=== PATIENT | male | born 1945 | race Caucasian/White ===

== ENCOUNTER 2023-09-25 05:36 | Inpatient (IN) ==
--- NOTE | 2023-09-06 11:05 | PAT Medication Instructions ---
Medication Instructions Date of Service September 06, 2023 Home Medications atorvastatin 40 mg tablet 40 mg PO HS chlorthalidone 25 mg tablet 25 mg PO QAM cyanocobalamin (vitamin B-12) 250 mcg tablet (Vitamin B-12) 250 mcg PO DAILY gemfibrozil 600 mg tablet 600 mg PO BID losartan 100 mg tablet (Cozaar) 100 mg PO QAM metoprolol tartrate 50 mg tablet 50 mg PO BID multivitamin 1 tab PO QAM pantoprazole 40 mg tablet,delayed release (Protonix) 40 mg PO QAM tamsulosin 0.4 mg capsule (Flomax) 0.4 mg PO HS STOP taking 48 hours before surgery gemfibrozil 600 mg tablet 600 mg PO BID DO NOT take the morning of surgery chlorthalidone 25 mg tablet 25 mg PO QAM cyanocobalamin (vitamin B-12) 250 mcg tablet (Vitamin B-12) 250 mcg PO DAILY losartan 100 mg tablet (Cozaar) 100 mg PO QAM multivitamin 1 tab PO QAM Take morning of surgery With a small sip of water, OTHERWISE NOTHING TO EAT OR DRINK AFTER MIDNIGHT: metoprolol tartrate 50 mg tablet 50 mg PO BID pantoprazole 40 mg tablet,delayed release (Protonix) 40 mg PO QAM Take evening before surgery atorvastatin 40 mg tablet 40 mg PO HS metoprolol tartrate 50 mg tablet 50 mg PO BID tamsulosin 0.4 mg capsule (Flomax) 0.4 mg PO HS Other Notes If you have any questions please call us at [phone] or [phone] or [phone] or [phone]
--- NOTE | 2023-09-11 11:44 | Anesthesiology Consultation ---
Date of Service September 11, 2023 Assessment & Plan (1) Encounter for pre-operative examination: - awaiting cardiology pre-operative evaluation. - upcoming [facility] PCP Dr. Wagner Alejo pre-operative evaluation 09/15/23. PAT testing to be faxed to PCP. Patient still needs UA and urine culture and chest x-ray completed prior to surgery. - check BSG am DOS. - ER [facility] 09/11/23: "...in atrial fibrillation and requested he come to the emergency department. Patient denies any symptoms...Vital signs stable. Patient is in new onset atrial fibrillation he states he has no history of atrial fibrillation. Ventricular rate is within normal limits. Patient states he has no interest in being admitted to the hospital and is adamantly refusing to be admitted. Discussed case with cardiology on-call Dr. Randhawa who states that the patient can be discharged with prescription Eliquis that he can see the patient in the office for workup of his atrial fibrillation. Patient and son are in agreement..." - afib. Patient brought remote to [facility] visit and screen shows it is off. EKG is demonstrating atrial fibrillation, confirmed on several tracings-rate controlled. Patient is asymptomatic in clinic. EKG from 04/19/23 also demonstrates afib, however patient and son present at visit today both deny any known history of afib or previous discussion on anticoagulation. Patient confirms he is not on any anticoagulation. Afib not listed in PCP 06/05/23 note. We discussed risks of afib and given history/no anticoagulation, patient is advised to have further evaluation in ER. He is agreeable and was transported to [facility] ER in wheelchair. Report called to [place] with [facility] ER. Case discussed with Dr. Iverson who advised patient will need cardiology evaluation prior to surgery. - presence of nerve stimulator: patient will bring remote to hospital DOS. - facial hair: patient was advised to shave facial hair. Chart Review Chart Review: Pending: Refer to Additional Notes / Consult section and Patient seen in Pre Admission Testing Teaching & Discussion Pre-Anesthesia Teaching/Discussion Notes: Instructed NPO after midnight before surgery, except medications with 15 cc of water. Medication instructions provided according to the PAT guidelines. History Surgery Operation Date: 09/25/23 09:05 Proposed Procedures p L4-L5 Revision Decompression and Fusion, Possible L5-S1, Spinal Cord Monitoring - Jan Sue DO Height/Weight Height: 6 ft 1 in Weight: 118.9 kg Allergies Allergy/AdvReac Type Severity Reaction Status Date / Time hydromorphone [From Dilaudid] Allergy Intermediate nausea and Verified 09/11/23 13:45 vomiting moexipril Allergy Intermediate Rash Verified 09/11/23 12:18 morphine Allergy Intermediate nausea and Verified 09/11/23 13:45 vomiting hydrochlorothiazide Allergy Unknown RASH Verified 09/04/23 13:57 iodine Allergy Unknown RASH Verified 09/04/23 13:57 lodine Allergy Unknown Uncoded 09/11/23 13:45 Medications Home Medications Medication Instructions Recorded Confirmed Last Taken atorvastatin 40 mg tablet 40 mg PO HS 09/04/23 09/04/23 Unknown chlorthalidone 25 mg tablet 25 mg PO QAM 09/04/23 09/04/23 Unknown cyanocobalamin (vitamin B-12) 250 250 mcg PO DAILY 09/04/23 09/04/23 Unknown mcg tablet (Vitamin B-12) gemfibrozil 600 mg tablet 600 mg PO BID 09/04/23 09/04/23 Unknown losartan 100 mg tablet (Cozaar) 100 mg PO QAM 09/04/23 09/04/23 Unknown metoprolol tartrate 50 mg tablet 50 mg PO BID 09/04/23 09/04/23 Unknown multivitamin 1 tab PO QAM 09/04/23 09/04/23 Unknown pantoprazole 40 mg tablet,delayed 40 mg PO QAM 09/04/23 09/04/23 Unknown release (Protonix) tamsulosin 0.4 mg capsule (Flomax) 0.4 mg PO HS 09/04/23 09/04/23 Unknown apixaban 5 mg tablet (Eliquis) 5 mg PO BID #30 tabs 09/11/23 Unknown Past Medical History Medical History Afib Peripheral neuropathy BPH (benign prostatic hyperplasia) Type 2 diabetes mellitus diet controlled Dry eye syndrome Macular edema of left eye History of retinal vein occlusion Urinary retention chronic, denies change or worsening Acid reflux controlled, stable per pt Dyslipidemia HTN (hypertension) controlled, stable per pt Patient denies h/o stroke, seizures, heart attack, heart failure, or blood transfusions. Exercise / Class Metabolic Activity II 4-5 Yardwork/Stairs/Walk up hill (denies chest discomfort or shortness of breath with 1 FOS) Past Family History Family History Other No family history of adverse response to anesthesia Past Surgical History Surgical History S/P placement of nerve stimulator Hx of LASIK Hx of eye surgery Hx of colonoscopy Hx of removal of cyst back Hx of tooth extraction Hx of tonsillectomy Past Anesthesia History No Family Hx of Anesthesia Complications and Other (h/o bowel and urinary retention after surgeries) History of PONV No Hx of PONV and No Hx of Motion Sickness Social History Smoking Status: Former smoker Do You Dip or Chew Tobacco: No Smoking End Date: quit ~25 yrs ago Hx Alcohol Use: Yes (1 per day) Alcohol type: beer and hard liquor alcohol intake frequency: 0-2 drinks per day Hx Substance Use: No substance use type: does not use Review of Systems Snoring, denies witnessed apneas. Patient denies chest pain, shortness of breath, dyspnea on exertion, fever, chills, cough, wheezing, or palpitations. Physical Exam Vital Signs Vitals BP 125/79 P 90 TEMP 97.8 SP02 96% on RA RESP 18 Physical Patient resting comfortably in chair in no acute distress, alert and oriented, responding appropriately throughout visit Full cervical extension range of motion without pain TMD 3.5 finger breadths Mallampati Score 2 Dentition: intact-many missing teeth; denies chipped or loose teeth, caps/crowns, implants or bridges Lungs: normal respiratory effort. Good air movement, clear throughout to auscultation, no adventitious breath sounds Cardiac: regular rate and rhythm, no murmurs noted Carotid arteries: negative bruit bilat Lab Results Anesthesia Preop Results Results Anesthesia Widget: WBC 9.22 K/ul (4.8-10.8) 09/11/23 Hgb 15.1 g/dl (14.0-18.0) 09/11/23 Hct 41.3 % (42.0-52.0) L 09/11/23 Plt 311 K/uL (130-400) 09/11/23 Na 138 mmol/L (136-145) 09/11/23 K 4.0 mmol/L (3.5-5.1) 09/11/23 Cl 104 mmol/L (98-107) 09/11/23 CO2 22 mmol/L (21-32) 09/11/23 BUN 31 mg/dl (6-23) H 09/11/23 Creat 1.31 mg/dl (0.6-1.4) 09/11/23 Glucose Level 114 mg/dl (70-99(Fasting)) H 09/11/23 PT 10.8 Seconds (9.0-12.0) 09/11/23 PTT 29 Seconds (21-31) 09/11/23 INR 1.0 (0.9-1.1) 09/11/23 TSH 0.587 uIu/ml (0.300-4.500) 09/11/23 HA1c 6.5 % (4.5-5.6) H 09/11/23 Blood Type B Positive 09/11/23 Antibody Screen NEGATIVE 09/11/23 Testing Electrocardiogram Date: 09/11/23 Afib, rate 88 bpm Low voltage QRS Cannot rule out anterior infarct, age undetermined When compared with 09/11/23 EKG from earlier that day, minimal criteria for anterior infarct are now present Echocardiogram Date: 05/04/23 EF 55% Mildly dilated LA Mild MAC, no MS/MR
[2023-09-25] MEDS: LR 60ML/HR IV SCH (06:25)
[2023-09-25] MEDS: CeleBREX 200 MG CAP PO SCH (06:28)
[2023-09-25] MEDS: ACETAMINOPHEN 500 MG TAB PO SCH (06:28)
[2023-09-25] MEDS: GABAPENTIN 300 MG CAP PO SCH (06:28)
[2023-09-25] MEDS ORDERED: PROPOFOL IV EMULSION 10 MG/ML 20 ML VIAL IV ONE (06:59)
[2023-09-25] MEDS ORDERED: ROCURONIUM BROMIDE 10 MG/ML 5 ML VIAL IV ONE (06:59)
[2023-09-25] MEDS ORDERED: LIDOCAINE 2% 2 ML VIAL/AMP(20MG/ML) INFIL ONE (06:59)
[2023-09-25] MEDS ORDERED: fentaNYL citrate PF 100 MCG/2 ML VIAL ONE (07:00)
[2023-09-25] MEDS ORDERED: MIDAZOLAM HCL 1 MG/ML 2ML VIAL ONE (07:00)
[2023-09-25] MEDS ORDERED: ONDANSETRON INJ 2 MG/ML 2 ML VIAL IV PRN ×2 (07:42→11:26)
[2023-09-25] MEDS ORDERED: ePHEDrine sulfate 50 MG/ML AMP IV PRN (07:42)
[2023-09-25] MEDS ORDERED: ATROPINE SULFATE 0.1 MG/ML 10ML SYR IV PRN (07:42)
--- NOTE | 2023-09-25 07:48 | History & Physical Bridge Note ---
Date of Service September 25, 2023 History & Physical Bridge Note I have examined the patient, reviewed the History & Physical and in the interval since the performance of the History & Physical I have noted the following changes of clinical significance: no changes noted
--- NOTE | 2023-09-25 07:49 | History & Physical Report ---
Date of Service September 25, 2023 Assessment & Plan (1) Neurogenic claudication due to lumbar spinal stenosis: Plan: L4-L5 revision decompression and fusion possible L5-S1 History of Present Illness Chief Complaint: Back and leg pain Primary Care Provider: Wagner Alejo This is a 78-year-old male presents chronic persistent back and leg pain after failing course of nonoperative care is here for surgical invention. Allergies Allergy/AdvReac Type Severity Reaction Status Date / Time hydromorphone [From Dilaudid] Allergy Intermediate nausea and Verified 09/25/23 05:59 vomiting moexipril Allergy Intermediate Rash Verified 09/25/23 05:59 morphine Allergy Intermediate nausea and Verified 09/25/23 05:59 vomiting hydrochlorothiazide Allergy Unknown RASH Verified 09/25/23 05:59 iodine Allergy Unknown RASH Verified 09/25/23 05:59 lodine Allergy Unknown Uncoded 09/11/23 13:45 Home Medications Medication Instructions Recorded Confirmed Type atorvastatin 40 mg tablet 40 mg PO HS 09/04/23 09/25/23 History chlorthalidone 25 mg tablet 25 mg PO QAM 09/04/23 09/25/23 History cyanocobalamin (vitamin B-12) 250 250 mcg PO DAILY 09/04/23 09/25/23 History mcg tablet (Vitamin B-12) gemfibrozil 600 mg tablet 600 mg PO BID 09/04/23 09/25/23 History losartan 100 mg tablet (Cozaar) 100 mg PO QAM 09/04/23 09/25/23 History metoprolol tartrate 50 mg tablet 50 mg PO BID 09/04/23 09/25/23 History multivitamin 1 tab PO QAM 09/04/23 09/25/23 History pantoprazole 40 mg tablet,delayed 40 mg PO QAM 09/04/23 09/25/23 History release (Protonix) tamsulosin 0.4 mg capsule (Flomax) 0.4 mg PO HS 09/04/23 09/25/23 History apixaban 5 mg tablet (Eliquis) 5 mg PO BID #30 tabs 09/11/23 09/25/23 Rx Past Med/Surg History Medical History Afib Peripheral neuropathy BPH (benign prostatic hyperplasia) Type 2 diabetes mellitus diet controlled Dry eye syndrome Macular edema of left eye History of retinal vein occlusion Urinary retention chronic, denies change or worsening Acid reflux controlled, stable per pt Dyslipidemia HTN (hypertension) controlled, stable per pt Surgical History S/P placement of nerve stimulator Hx of LASIK Hx of eye surgery Hx of colonoscopy Hx of removal of cyst back Hx of tooth extraction Hx of tonsillectomy Family History Other No family history of adverse response to anesthesia Social History Smoking Status: Former smoker Tobacco Type: Cigarettes Smoking End Date: quit ~25 yrs ago; Second Hand Exposure: No; Do You Dip or Chew Tobacco: No; Tobacco Cessation Education Requested by Patient: No Hx Alcohol Use: Yes (1 per day) Alcohol type: beer and hard liquor Hx Substance Use: No Preferred Language: Citizen Of [place] Communication Ability: Effective Material Yard Clerk Required: No Beliefs That Will Affect Care: None Current Living Situation: Family Current Living Situation Comment: lives w/ son Other Information That Helps Us Care for You: No Feels Safe at Home: Yes Safety Concerns: Feels Safe At This Time Assistive Devices: Cane, Glasses and Walker Assistive Devices Comment: reading glasses Physical Exam Physical Exam: Patient is alert and oriented Heart regular in rhythm Lungs clear Results & Data Results & Data Vital Signs (Past 12 Hours) Vital Signs Temp Pulse Resp BP Pulse Ox O2 Del Method 09/25/23 06:03 36.5 C 74 18 157/93 H 95 Room Air
[2023-09-25] MEDS: ceFAZolin 2000MG 2,000 MG/15 ML SYR IV SCH ×2 (07:57→15:19)
[2023-09-25] MEDS ORDERED: ONDANSETRON INJ 2 MG/ML 2 ML VIAL ONE (08:16)
[2023-09-25] MEDS: BUPIVACAINE/EPINEPHRINE 0.5% MPF 1:200,000 30 ML VIAL ONE (08:45)
[2023-09-25] MEDS: ceFAZolin 330 MG/ML 1 GM VIAL ONE (08:45)
[2023-09-25] MEDS: FLOSEAL HEMOSTATIC MATRIX 10ML TOP ONE (09:39)
[2023-09-25] MEDS ORDERED: SUGAMMADEX SODIUM 200 MG/2 ML VIAL IV ONE (09:41)
[2023-09-25] MEDS ORDERED: KETOROLAC 30 MG/ML VIAL ONE (09:46)
--- NOTE | 2023-09-25 09:51 | Operative Report ---
Post Operative Report Pre & Post Diagnosis Operation Date: 09/25/23 07:45 Pre-Op Diagnosis: Neurogenic Claudication due to Lumbar Spinal Stenosis Lumbar spondylolisthesis L4-5 Post-Op Diagnosis: Same I identified the patient and participated in the time-out.: Yes Procedure Operation Date: 09/25/23 07:45 Actual Procedures #1 revision decompression with bilateral medial facetectomies and foraminotomies L3-L4 L4-5 per #2 posterior spinal fusion L4-5 #3 placed posterior instrumentation L4-5 per #4 interbody fusion L4-L5. #5 placement Spira 15 x 26 mm x 2 at L4-5 per #6 placement locally harvested morselized autograft in the posterior gutters. #7 placement of Morpheus bone graft in the interbody space and infuse collagen sponge, with Koros in the posterior lateral gutters. Surgeon Jan Sue, DO Repossessor Leti Gaming Estimated Blood Loss 100 Findings See Below The patient is 6 foot tall weighing over 116 kg with a BMI in excess of 34. Patient's body was did contribute to significant technical difficulty with positioning exposure and the procedure itself adding least 50% increased operative time. Specimens None Indications This is a 78-year-old male presents above-mentioned diagnosis after failed course of nonoperative care is here for surgical invention. Description of Procedure Patient met with identified informed consent obtained. Patient was then taken to the operative suite underwent patient placed in a prone position injection table top Alvarez frame. All bony prominences well-padded eyes inspected to ensure no external pressure placed upon the. This point the lumbar spine was prepped and draped in a sterile fashion. Sharp dissection with the assistance of Bovie cautery from down to and exposing the remaining lamina transverse processes of L4 and L5 bilaterally. From caudal to cephalad fashion revision complete laminectomy bilateral facetectomies of L4 partial laminectomy of L3 was performed with addressing severe spinal stenosis. Pedicle screws were then placed at L4-5 bilaterally with assistance of fluoroscopy and process denae placed. By way of a transforaminal approach beginning on the right discectomy of L4-5 was performed endplates guided to subcortical bleeding bone and a 15 x 26 mm Spira cage filled with Morpheus tapped in position. Then proceeded to the left transforaminal region completed the discectomy curetted the endplates to subcortical bleeding bone and placed a second 15 x 26 mm Spira cage filled with Morpheus bone graft into position. The rods were then compressed locked into final position bilaterally. The transverse processes of L4-5 burred to subcortical bleeding bone. Infuse collagen sponge count with Koros and local autograft placed in the posterior gutters. 15 round KEZIA drain inserted. The incision was then closed with 1 Vicryl the fascia 2-0 Vicryl subcutaneously and 4 Monocryl for final skin closure. Steri-Strips sterile dressing placed. Patient waken taken PACU stable condition. Please note spinal cord monitoring was utilized at the procedure no changes noted. Lastly Leti Gaming was present at the entire surgeon while the patient positioning complex portion of the surgery and fascial closure. I attest to the content of the Intraoperative Record and any orders documented therein. Any exceptions are noted below.
[2023-09-25] MEDS: fentaNYL citrate PF 100 MCG/2 ML VIAL IV PRN (10:35)
--- NOTE | 2023-09-25 11:00 | Anesthesiology Progress Note ---
Date of Service September 25, 2023 Anesthesia Post Procedure Vital Signs Vital Signs: Temp Pulse Pulse Resp BP Pulse Ox O2 Del Method 09/25/23 10:50 37.0 C 68 12 137/85 98 Nasal Cannula 09/25/23 10:40 64 12 148/94 H 97 Oxymask 09/25/23 10:30 64 12 147/98 H 95 Oxymask 09/25/23 10:20 68 14 165/83 H 98 Oxymask 09/25/23 10:10 68 14 177/103 H 98 Oxymask 09/25/23 10:00 36.0 C L 67 14 168/101 H 97 Oxymask 09/25/23 06:03 36.5 C 74 18 157/93 H 95 Room Air O2 Flow Rate 09/25/23 10:50 2 09/25/23 10:40 4 09/25/23 10:30 09/25/23 10:20 09/25/23 10:10 09/25/23 10:00 6 09/25/23 06:03 Pain Intensity Back: Pain Intensity: 8 Transfer of Care Handoff Completed per policy Notes Mental Status: alert / awake / arousable Patient Amnestic to Procedure: Yes Nausea / Vomiting: adequately controlled Pain: adequately controlled Airway Patency, RR, SpO2: stable & adequate BP & HR: stable & adequate Hydration State: stable & adequate Anesthetic Complications: no major complications apparent and Pt Satisfied with anesthetic care
[2023-09-25] MEDS ORDERED: bisacodyL 10 MG SUPP PR PRN (11:26)
[2023-09-25] MEDS ORDERED: hydrOXYzine HCl 25 MG TAB PO PRN (11:26)
[2023-09-25] MEDS ORDERED: LORazepam 0.5 MG in SYRINGE 0.25 ML IV PRN (11:26)
[2023-09-25] MEDS ORDERED: MAGNESIUM HYDROXIDE SUSP 30 ML UDC PO PRN (11:26)
[2023-09-25] MEDS ORDERED: METOCLOPRAMIDE HCL INJ 5 MG/ML 2 ML VIAL IV PRN (11:26)
[2023-09-25] MEDS ORDERED: DO NOT ADMINISTER FLU VACCINE PRN (11:26)
[2023-09-25] MEDS ORDERED: ALUMINUM/MAGNESIUM SUSP 30 ML UDC PO PRN (11:26)
[2023-09-25] MEDS ORDERED: traMADol HCL 50 MG TABLET PO PRN (11:26)
[2023-09-25] MEDS ORDERED: SOD PHOSPHATE/SOD BIPHOSPHATE ENEMA 132 ML BTL PR PRN (11:26)
[2023-09-25] MEDS ORDERED: NALOXONE HCL 0.4 MG/1 ML VIAL/CARP IV PRN (11:26)
[2023-09-25] MEDS ORDERED: DO NOT ADMINISTER PNEUMOCOCCAL VACCINE PRN (11:26)
[2023-09-25] MEDS ORDERED: FAMOTIDINE 20 MG TAB PO PRN (11:26)
[2023-09-25] MEDS ORDERED: ONDANSETRON 4 MG OD TAB PO PRN (11:26)
[2023-09-25] MEDS ORDERED: PROMETHAZINE HCL 12.5 MG in SODIUM CHLORIDE 0.9% 50 ML IV PRN (11:26)
[2023-09-25] MEDS ORDERED: LORazepam 0.5 MG TAB PO PRN (11:26)
[2023-09-25] MEDS ORDERED: ACETAMINOPHEN 1,000 MG/100 ML VIAL IV PRN (11:26)
[2023-09-25] MEDS ORDERED: diphenhydrAMINE Capsule 25 MG CAP PO PRN (11:26)
--- NOTE | 2023-09-25 11:58 | Hospitalist Consultation ---
Date of Consultation September 25, 2023 Assessment & Plan (1) Neurogenic claudication due to lumbar spinal stenosis: This is a 78 y/o male with recently diagnosis of atrial fibrillation, rate- controlled and on AC w/ Eliquis, HTN, hyperglycemia but no diagnosis of DM per PCP notes, GERD, BPH, peripheral neuropathy, and vitamin D deficiency who underwent L4-L5 decompression and fusion revision today (POD #0). Currently, his only significant complaint is lower back pain. - Pain control and activity per primary team - Resume Eliquis as soon as cleared to do so by primary team - Labs in the AM - CBC, BMP - Check EKG now due to history of atrial fibrillation - Encourage incentive spirometry (2) Prediabetes: Per PCP notes, pt's A1c was 6.1 in March, 6.2 the year prior. Discussed with pt the possibility of his sugar being elevated post-op after receiving steroids - Monitor blood sugar, insulin sliding scale - A1c in the AM (3) HTN (hypertension): Chronic, stable - Hold chlorthalidone for now pending oral intake, renal function - Continue other home meds and monitor (4) BPH (benign prostatic hyperplasia): Chronic, stable - Continue tamsulosin (5) Dyslipidemia: Chronic, stable - Continue statin (6) Acid reflux: Chronic, stable - Continue PPI therapy Plan Pt seen and reviewed with collaborating physician, Dr. Garcia. Plan of care discussed and as outlined above. thank you for this consultation. We will continue to follow the patient with you. [facility] via [facility] Please don't hesitate to reach out with questions. Fer Chaudhari PA-C Supervising Physician Co-Signing Physician Notes I have seen and discussed the case with the collaborating KVNG. I agree with the above H&P. I have reviewed and confirmed the patients medical history, the findings on physical examination, and the patients diagnosis and treatment plan with Fara CALDERON and agree with the information documented. In short, Mr. Baker is a 78 year old gentleman with history of HTN, HLD, prediabetes, BPH, persistent atrial fibrillation now POD #0 lumbar decompression of lumbar spine. Patient tolerated procedure and noting some post-operative pain. GENERAL APPEARANCE: AxOx4, generally uncomfortable male 2/2 pain post operatively NECK: Supple without lymphadenopathy. No stiffness or restricted ROM. HEART: normal rate, irregularly irregular LUNGS: CTAB, moving air well. No crackles or wheezes are heard. ABDOMEN: Soft/obese nontender, nondistended with good bowel sounds heard. EXTREMITIES: Without cyanosis, clubbing or edema. NEUROLOGICAL: Grossly nonfocal. Alert and oriented, moving all 4 extremities. CN not formally tested but appear grossly intact. #Neurogenic claudication s/p decompression -Encouraged IS -Follow Hgb and monitor for post-op anemia -Pain management per primary #Persistent A fib -Resume home medications -EKG -Discuss resumption of AC per discretion of Dr. Sue #HTN Resume BP meds as tolerated Rest of plan as above I spent a total of 20 minutes coordinating, documenting, and providing care for this patient excluding time spent in the performance of separately billed services. All of the aforementioned completed while collaborating with the assigned physician assistance for a full treatment plan History of Present Illness Reason for Consultation: Post-operative medical management Requesting Physician: Dr. Jan Sue Attending Physician: Jan Sue, History of Present Illness This is a 78 y/o male with recently diagnosis of atrial fibrillation, rate- controlled and on AC w/ Eliquis, HTN, hyperglycemia but no diagnosis of DM per PCP notes, GERD, BPH, peripheral neuropathy, and vitamin D deficiency who underwent L4-L5 decompression and fusion revision today by Dr. Sue and for whom we have been consulted to assist with post-operative medical management. Pt's outpatient PCP and cardiology notes were reviewed. Of note, pt was seen in the ED at [facility] on 09/11/23 after preoperative evaluation showed atrial fibrillation and pt was started on Eliquis, saw cardiology on Monday who recommended holding Eliquis x 48 hrs pre-op then resuming as soon as okay with surgeon. Pt reports that he was not told that he had atrial fibrillation before last month. Currently, his main complaint is lower back pain. He denies chest pain, palpitations, shortness of breath, nausea or vomiting. Last BM was yest erday. Some throat dryness but no pain or dysphagia. Has a Alarcon in place. Prior back surgery with spinal stimulator placement in 2020. Allergies Allergy/AdvReac Type Severity Reaction Status Date / Time hydromorphone [From Dilaudid] Allergy Intermediate nausea and Verified 09/25/23 05:59 vomiting moexipril Allergy Intermediate Rash Verified 09/25/23 05:59 morphine Allergy Intermediate nausea and Verified 09/25/23 05:59 vomiting hydrochlorothiazide Allergy Unknown RASH Verified 09/25/23 05:59 iodine Allergy Unknown RASH Verified 09/25/23 05:59 lodine Allergy Unknown Uncoded 09/11/23 13:45 Home Medications Medication Instructions Recorded Confirmed Type atorvastatin 40 mg tablet 40 mg PO HS 09/04/23 09/25/23 History chlorthalidone 25 mg tablet 25 mg PO QAM 09/04/23 09/25/23 History cyanocobalamin (vitamin B-12) 250 250 mcg PO DAILY 09/04/23 09/25/23 History mcg tablet (Vitamin B-12) gemfibrozil 600 mg tablet 600 mg PO BID 09/04/23 09/25/23 History losartan 100 mg tablet (Cozaar) 100 mg PO QAM 09/04/23 09/25/23 History metoprolol tartrate 50 mg tablet 50 mg PO BID 09/04/23 09/25/23 History multivitamin 1 tab PO QAM 09/04/23 09/25/23 History pantoprazole 40 mg tablet,delayed 40 mg PO QAM 09/04/23 09/25/23 History release (Protonix) tamsulosin 0.4 mg capsule (Flomax) 0.4 mg PO HS 09/04/23 09/25/23 History apixaban 5 mg tablet (Eliquis) 5 mg PO BID #30 tabs 09/11/23 09/25/23 Rx oxycodone 5 mg tablet 5 mg PO Q6H PRN pain #30 tabs 09/25/23 09/25/23 Rx tramadol 50 mg tablet 50 mg PO Q6H PRN pain, moderate 09/25/23 09/25/23 Rx #30 tabs Patient History Medical History (Updated 09/25/23 @ 13:13 by Mey Chaudhari PA-C) Prediabetes Acid reflux controlled, stable per pt Dyslipidemia HTN (hypertension) controlled, stable per pt Afib Peripheral neuropathy BPH (benign prostatic hyperplasia) Dry eye syndrome Macular edema of left eye History of retinal vein occlusion Urinary retention chronic, denies change or worsening Surgical History S/P placement of nerve stimulator Hx of LASIK Hx of eye surgery Hx of colonoscopy Hx of removal of cyst back Hx of tooth extraction Hx of tonsillectomy Family History Other No family history of adverse response to anesthesia Social History Smoking Status: Former smoker Tobacco Type: Cigarettes Smoking End Date: quit ~25 yrs ago; Second Hand Exposure: No; Do You Dip or Chew Tobacco: No; Tobacco Cessation Education Requested by Patient: No Hx Alcohol Use: Yes (1 per day) Alcohol type: beer and hard liquor Hx Substance Use: No Preferred Language: Dutch Communication Ability: Effective Trimming Operator Required: No Beliefs That Will Affect Care: None Current Living Situation: Other Current Living Situation Comment: Son - Jimmy Other Information That Helps Us Care for You: No Feels Safe at Home: Yes Safety Concerns: Feels Safe At This Time Assistive Devices: Cane, Denture - Upper and Other Assistive Devices Comment: shower chair Review of Systems Review of Systems: All systems reviewed & are unremarkable except as noted in HPI & below Physical Exam Physical Exam: Please see physician addendum for details of the physical exam Results & Data Results & Data Vital Signs (Past 12 Hours) Vital Signs Temp Pulse Pulse Pulse Resp BP Pulse Ox 09/25/23 11:30 36.8 C 64 15 122/73 97 09/25/23 11:00 63 12 136/65 96 09/25/23 10:50 37.0 C 68 12 137/85 98 09/25/23 10:40 64 12 148/94 H 97 09/25/23 10:30 64 12 147/98 H 95 09/25/23 10:20 68 14 165/83 H 98 09/25/23 10:10 68 14 177/103 H 98 09/25/23 10:00 36.0 C L 67 14 168/101 H 97 09/25/23 06:03 36.5 C 74 18 157/93 H 95 O2 Del Method O2 Flow Rate 09/25/23 11:30 Nasal Cannula 2 09/25/23 11:00 Nasal Cannula 2 09/25/23 10:50 Nasal Cannula 2 09/25/23 10:40 Oxymask 4 09/25/23 10:30 Oxymask 09/25/23 10:20 Oxymask 09/25/23 10:10 Oxymask 09/25/23 10:00 Oxymask 6 09/25/23 06:03 Room Air Laboratory Results 09/25/23 09/25/23 09/25/23 06:06 06:22 10:07 POC Glucose 142 H 157 H Blood Type B Positive Antibody Screen NEGATIVE 09/25/23 11:44 POC Glucose 137 H Blood Type Antibody Screen Medications Administered Acetaminophen (Acetaminophen 500 Mg Tab) 1,000 mg PO PREOP CROW Stop: 09/25/23 18:00 Last Admin: 09/25/23 06:28 Dose: 1,000 mg Documented By: MINH Celecoxib (Celebrex 200 Mg Cap) 200 mg PO PREOP CROW Stop: 09/25/23 18:00 Last Admin: 09/25/23 06:28 Dose: 200 mg Documented By: MINH Fentanyl Citrate (Fentanyl Citrate Pf 100 Mcg/2 Ml Vial) 25 mcg IV Q5M PRN PRN Reason: PACU Use Only-Pain Stop: 09/25/23 15:43 Last Admin: 09/25/23 10:50 Dose: 25 mcg Documented By: Admin: 09/25/23 10:45 Dose: 25 mcg Documented By: Admin: 09/25/23 10:40 Dose: 25 mcg Documented By: Admin: 09/25/23 10:35 Dose: 25 mcg Documented By: LAURENT Gabapentin (Gabapentin 300 Mg Cap) 300 mg PO PREOP CROW Stop: 09/25/23 18:00 Last Admin: 09/25/23 06:28 Dose: 300 mg Documented By: MINH Lactated Ringer's (Lr) 1,000 mls @ 60 mls/hr IV .[id number] CROW Stop: 09/25/23 22:39 Last Infusion: 09/25/23 07:55 Dose: Infused Documented By: Admin: 09/25/23 06:25 Dose: 60 mls/hr Documented By: MINH Cefazolin Sodium (Ancef 2000mg) 2,000 mg in 15 mls @ 3.75 mls/min IV PREOP CROW; Protocol Stop: 09/25/23 18:00 Last Admin: 09/25/23 07:57 Dose: 3.75 mls/min Documented By: ALEXANDRIA Lactated Ringer's (Lr) 1,000 mls @ 150 mls/hr IV .[id number] CROW Stop: 10/25/23 11:25 Last Admin: 09/25/23 12:00 Dose: 150 mls/hr Documented By: Stacia Discontinued Medications Bupivacaine HCl/Epinephrine Bitart (Bupivacaine/Epinephrine 0.5% Mpf 1:200,000 30 Ml Vial) Confirm Administered Dose 30 ml .ROUTE .STK-MED ONE Stop: 09/25/23 07:06 Last Admin: 09/25/23 08:45 Dose: 20 ml Documented By: GMB Cefazolin Sodium (Cefazolin 330 Mg/Ml 1 Gm Vial) Confirm Administered Dose 990 mg .ROUTE .STK-MED ONE Stop: 09/25/23 07:07 Last Admin: 09/25/23 08:45 Dose: 990 mg Documented By: GMGuillaume Miscellaneous ( Floseal Hemostatic Matrix 10ml) 20 ml TOP ONCE ONE Stop: 09/25/23 08:47 Last Admin: 09/25/23 09:39 Dose: 20 ml Documented By: GMB (3) HTN (hypertension) Hypertension type: primary hypertension Qualified Code(s): I10 - Essential (primary) hypertension (4) BPH (benign prostatic hyperplasia) Lower urinary tract symptom detail: urinary retention Lower urinary tract symptom presence: symptoms present Qualified Code(s): N40.1 - Benign prostatic hyperplasia with lower urinary tract symptoms; R33.8 - Other retention of urine (6) Acid reflux Esophagitis presence: without esophagitis Qualified Code(s): K21.9 - Gastro- esophageal reflux disease without esophagitis
[2023-09-25] MEDS: LACTATED RINGER'S 1,000 ML IV SCH (12:00)
[2023-09-25] MEDS ORDERED: GLUCAGON FOR INJ 1 MG VIAL SQ PRN (13:18)
[2023-09-25] MEDS ORDERED: DEXTROSE 50% 50 ML SYRINGE IV PRN (13:18)
[2023-09-25] MEDS ORDERED: GLUCOSE 10 TAB/TUBE PO PRN (13:18)
[2023-09-25] MEDS ORDERED: GLUCOSE 40% GEL 15 GM TUBE PO PRN (13:18)
[2023-09-25] MEDS ORDERED: CARBOHYDRATES FOR HYPOGLYCEMIA PO PRN (13:18)
--- NOTE | 2023-09-25 13:52 | Fluoroscopy Report ---
FL lumbar spine 2-3V CLINICAL HISTORY: L4-L5 DECOMPRESSION AND FUSION POSSIBLE L5-S1 COMPARISON STUDY: None FLUOROSCOPY TIME: 19.5 seconds FLUOROSCOPY IMAGES: 2 EXPOSURE DOSE: 18.61 mGy FINDINGS: Posterior interbody denae and screw fusion with discectomy at L4-L5. The hardware appears int act. No unexpected opaque foreign bodies. IMPRESSION: Fluoroscopic assistance as above. ACT 112: Negative or not required by law. Electronically signed by: Ayo Bennett M.D. 09/25/2023 1:51 PM
[2023-09-25] MEDS: oxyCODONE HCL IR 5 MG TAB (IMMEDIATE RELEASE) PO PRN (13:55)
--- NOTE | 2023-09-25 16:59 | Electrocardiogram Report ---
Test Reason : Blood Pressure : / mmHG Vent. Rate : 064 BPM Atrial Rate : 394 BPM P-R Int : 000 ms QRS Dur : 066 ms QT Int : 402 ms P-R-T Axes : 000 -20 -01 degrees QTc Int : 414 ms Atrial fibrillation Possible Old Inferior infarct (cited on or before 11-SEP-2023) Possible Old Septal infarct Abnormal ECG When compared with ECG of 11-SEP-2023 13:18, No significant change Confirmed by Michael Solano ([id number]) on 09/25/2023 4:58:39 PM Referred By: Jan Sue Confirmed By:Michael Solano
[2023-09-25] MEDS: INSULIN ASPART PER UNIT CHARGE SC SCH (17:18)
[2023-09-25] MEDS: gemfibroziL 600 MG TAB PO SCH (20:57)
[2023-09-25] MEDS: METOPROLOL TARTRATE 50 MG TAB PO SCH (20:57)
[2023-09-25] MEDS: TAMSULOSIN HCL 0.4 MG CAP PO SCH (20:58)
[2023-09-25] MEDS: DOCUSATE SODIUM/SENNA 50/8.6MG TAB PO SCH (20:58)
[2023-09-25] MEDS: ATORVASTATIN 40 MG TAB PO SCH (20:58)
[2023-09-26] MEDS: POLYETHYLENE (MIRALAX) 17 GM PACK PO SCH (05:20)
[2023-09-26 06:45] LABS: Basophils # (auto) 0.07 K/uL (0.00-0.20); Basophils % (auto) 0.7 %; Eosinophils # (auto) 0.26 K/uL (0.00-0.50); Eosinophils % (auto) 2.7 %; Hematocrit (blood only) 34.7 % (42.0-52.0); Hemoglobin 12.3 g/dl (14.0-18.0); Immature Granulocytes # (auto) 0.03 K/uL (0.01-0.20); Immature Granulocytes % (auto) 0.3 %; Lymphocytes # (auto) 1.41 K/uL (1.20-3.40); Lymphocytes % (auto) 14.5 %; Mean Corpuscular Hemoglobin 32.2 pg (25.0-34.0); Mean Corpuscular Hgb Conc 35.4 g/dL (32.0-36.0); Mean Corpuscular Volume 90.8 fL (80.0-100.0); Mean Platelet Volume 10.4 fL (9.4-12.4); Monocytes # (auto) 1.07 K/uL (0.11-0.59); Neutrophils # (auto) 6.86 K/uL (1.40-6.50); Neutrophils % (auto) 70.8 %; Platelet Count 234 K/uL (130-400); RDW Coefficient of Variation 13.2 % (11.5-14.5); RDW Standard Deviation 43.1 fL (36.4-46.3); Red Blood Count 3.82 M/uL (4.70-6.10)
[2023-09-26 07:05] LABS: BUN Creatinine Ratio 20.1 (10-20); Calcium 8.3 mg/dl (8.6-10.3); Creatinine Clr Calc Pharmacy 50.4 ml/min; Est GFR (African American) 47.5 ml/min; Potassium 3.6 mmol/L (3.5-5.1)
[2023-09-26 07:43] LABS: Estimated Average Glucose 140 mg/dl; Hemoglobin A1C 6.5 % (4.5-5.6)
[2023-09-26] MEDS: LOSARTAN POTASSIUM 50 MG TAB PO SCH (08:15)
[2023-09-26] MEDS: PANTOprazole 40 MG TAB PO SCH (08:16)
[2023-09-26] MEDS: CYANOCOBALAMIN (B-12) 500 MCG TABLET PO SCH (08:16)
[2023-09-26] MEDS: dexAMETHasone 6 MG in SYRINGE 0 ML IV SCH (08:16)
[2023-09-26] MEDS: MULTIVITAMIN TAB PO SCH (08:16)
[2023-09-26] MEDS ORDERED: CHLORTHALIDONE 25 MG TAB PO SCH (09:00)
--- NOTE | 2023-09-26 13:21 | Orthopedic Progress Note ---
Date of Service September 26, 2023 Assessment & Plan (1) Neurogenic claudication due to lumbar spinal stenosis: Plan: At this time continue physical therapy monitor KEZIA operatively discharge home in next few days. Admission and Anticipated Discharge Date Admission Date: September 25, 2023 Subjective Back pain controlled leg pain improved Physical Exam Physical Exam: Patient is in the chair at the bedside. Is constricted testing. Peers comforta ble. Results & Data Vital Signs (Past 12 Hours) Vital Signs Temp Pulse Resp BP BP Pulse Ox O2 Del Method 09/26/23 11:37 36.9 C 72 18 100/61 94 Room Air 09/26/23 08:10 Room Air 09/26/23 07:38 37.1 C 77 18 146/86 H 95 Room Air 09/26/23 03:11 36.9 C 71 16 119/65 95 Room Air Queries Orthopedic Spine Obesity: Yes
--- NOTE | 2023-09-26 16:57 | Hospitalist Progress Note ---
Date of Service September 26, 2023 Assessment & Plan (1) Neurogenic claudication due to lumbar spinal stenosis: Plan: Patient is a 78 yr male with H/O Atrial fibrillation, rate-controlled and on AC w/ Eliquis, HTN, hyperglycemia but no diagnosis of DM per PCP notes, GERD, BPH, peripheral neuropathy, and vitamin D deficiency who underwent L4-L5 decompression and fusion revision today (POD #0). Currently, his only significant complaint is lower back pain. Lumbar spinal stenosis with neurogenic claudication S/P lumbar decompression, fusion surgery by Dr. Sue on 07/25/2024 Expected postoperative acute blood loss anemia Pain control, activity, wound care as per primary team Continue PT OT Bowel regimen to prevent constipation No indication for PRBC transfusion for now Monitor CBC Persistent atrial fibrillation Resume Eliquis once cleared by surgery Continue metoprolol (2) Prediabetes: Plan: DM II HbA1c 6.5 HbA1c 6.5 in August as well Patient currently prefers to be managed with dietary changes Continue insulin while hospitalized Monitor BGs Prefers to follow-up with PCP for further management CKD II Cr slightly elevated Hold diuretics for now Gentle IV fluids Monitor renal function Avoid nephrotoxic agents as able (3) HTN (hypertension): Plan: Chronic, stable Continue losartan, metoprolol Hold chlorthalidone for now Monitor BP (4) BPH (benign prostatic hyperplasia): Plan: Chronic, stable - Continue tamsulosin (5) Dyslipidemia: Plan: Chronic, stable - Continue statin (6) Acid reflux: Plan: Chronic, stable - Continue PPI Plan DVT Px: SCDs Resume Eliquis once ok with orthopedic surgery Admission and Anticipated Discharge Date Admission Date: September 25, 2023 Subjective Patient is seen and examined at bedside Back pain at surgical site is controlled States feeling tired today + Flatus, no bowel movement today Denies any chest pain, dyspnea, dizziness, nausea, vomiting No other complaints Review of Systems Review of Systems: All systems reviewed & are unremarkable except as noted in Subjective Physical Exam Physical Exam: Physical Exam: Vitals signs as noted above General Appearance:Moderately built and nourished, no apparent distress Head: normocephalic, Atraumatic Eyes: normal inspection, EOMI Neck: supple, Trachea midline Respiratory/Chest: Normal breath sounds, CTA, No accessory muscle use Cardiovascular: Irregularly irregular, No murmur Abdomen/GI:Soft, Non tender, Bowel sounds present Back: surgical site in dressing, +drain Extremities/Musculoskeletal:normal inspection, no edema Neurologic/Psych:AAOX3, grossly no focal neurological deficits Skin: normal color, warm Results & Data Results & Data Vital Signs (Past 12 Hours) Vital Signs Temp Pulse Resp BP Pulse Ox O2 Del Method 09/26/23 14:54 36.6 C 77 18 123/75 95 Room Air 09/26/23 11:37 36.9 C 72 18 100/61 94 Room Air 09/26/23 08:10 Room Air 09/26/23 07:38 37.1 C 77 18 146/86 H 95 Room Air Laboratory Results Short CBC 09/26/23 Range/Units 06:24 WBC 9.70 (4.8-10.8) K/ul Hgb 12.3 L (14.0-18.0) g/dl Hct 34.7 L (42.0-52.0) % Plt Count 234 (130-400) K/uL BMP 09/26/23 06:24 Sodium 138 Potassium 3.6 Chloride 104 Carbon Dioxide 25 BUN 32 H Creatinine 1.59 H Glucose 143 H Calcium 8.3 L (3) HTN (hypertension) Hypertension type: primary hypertension Qualified Code(s): I10 - Essential ( primary) hypertension (4) BPH (benign prostatic hyperplasia) Lower urinary tract symptom presence: symptoms present Lower urinary tract symptom detail: urinary retention Qualified Code(s): N40.1 - Benign prostatic hyperplasia with lower urinary tract symptoms; R33.8 - Other retention of urine (6) Acid reflux Esophagitis presence: without esophagitis Qualified Code(s): K21.9 - Gastro- esophageal reflux disease without esophagitis
[2023-09-26] MEDS: NSS + 20MEQ KCL 20 MEQ/1,000 ML BAG IV ONE (17:20)
[2023-09-27 07:09] LABS: Hematocrit (blood only) 33.1 % (42.0-52.0); Hemoglobin 11.6 g/dl (14.0-18.0); Mean Corpuscular Hemoglobin 31.8 pg (25.0-34.0); Mean Corpuscular Volume 90.7 fL (80.0-100.0); Mean Platelet Volume 10.8 fL (9.4-12.4); Platelet Count 233 K/uL (130-400); RDW Coefficient of Variation 12.6 % (11.5-14.5); RDW Standard Deviation 41.2 fL (36.4-46.3); Red Blood Count 3.65 M/uL (4.70-6.10); White Blood Count 12.21 K/ul (4.8-10.8)
[2023-09-27 07:21] LABS: BUN Creatinine Ratio 23.7 (10-20); Calcium 8.5 mg/dl (8.6-10.3); Creatinine Clr Calc Pharmacy 61.2 ml/min; Est GFR (Non-African American) 51.8 ml/min; Potassium 3.8 mmol/L (3.5-5.1)
--- NOTE | 2023-09-27 14:37 | Orthopedic Progress Note ---
Date of Service September 27, 2023 Assessment & Plan (1) Neurogenic claudication due to lumbar spinal stenosis: Plan: At this time continue physical therapy monitor KEZIA output anticipate discharge home tomorrow. Admission and Anticipated Discharge Date Admission Date: September 25, 2023 Subjective Back pain controlled leg pain improved Physical Exam Physical Exam: Patient is in the chair at the bedside patient has good strength testing. Results & Data Vital Signs (Past 12 Hours) Vital Signs Temp Pulse Pulse Resp BP Pulse Ox O2 Del Method 09/27/23 13:00 37.0 C 70 16 123/67 97 Room Air 09/27/23 09:15 Room Air 09/27/23 07:43 36.7 C 60 12 169/89 H 97 Room Air Queries Orthopedic Spine Obesity: Yes
--- NOTE | 2023-09-27 16:23 | Hospitalist Progress Note ---
Date of Service September 27, 2023 Assessment & Plan (1) Neurogenic claudication due to lumbar spinal stenosis: Plan: Patient is a 78 yr male with H/O Atrial fibrillation, rate-controlled and on AC w/ Eliquis, HTN, hyperglycemia but no diagnosis of DM per PCP notes, GERD, BPH, peripheral neuropathy, and vitamin D deficiency who underwent L4-L5 decompression and fusion revision today (POD #0). Currently, his only significant complaint is lower back pain. Lumbar spinal stenosis with neurogenic claudication S/P lumbar decompression, fusion surgery by Dr. Sue on 07/25/2024 Expected postoperative acute blood loss anemia Pain control, activity, wound care as per primary team Bowel regimen to prevent constipation No indication for PRBC transfusion for now Monitor CBC Leukocytosis likely secondary to steroids Continue PT OT Persistent atrial fibrillation Recommend to resume Eliquis once cleared by surgery Continue metoprolol (2) Prediabetes: Plan: DM II HbA1c 6.5 HbA1c 6.5 in August as well Patient currently prefers to be managed with dietary changes Continue insulin while hospitalized Monitor BGs Prefers to follow-up with PCP for further management CKD II Cr slightly elevated Hold diuretics for now Received gentle IV fluids Monitor renal function Avoid nephrotoxic agents as able (3) HTN (hypertension): Plan: Chronic, stable Continue losartan, metoprolol Hold chlorthalidone for now Monitor BP (4) BPH (benign prostatic hyperplasia): Plan: Chronic, stable - Continue tamsulosin (5) Dyslipidemia: Plan: Chronic, stable - Continue statin (6) Acid reflux: Plan: Chronic, stable - Continue PPI Plan DVT Px: SCDs Resume Eliquis once ok with orthopedic surgery Admission and Anticipated Discharge Date Admission Date: September 25, 2023 Subjective Patient is seen and examined at bedside Back pain is controlled Ambulated in the hallways this morning Had bowel movement today No new complaints Denies any chest pain, dyspnea, dizziness, nausea, vomiting Review of Systems Review of Systems: All systems reviewed & are unremarkable except as noted in Subjective Physical Exam Physical Exam: Physical Exam: Vitals signs as noted above General Appearance:Moderately built and nourished, no apparent distress Head: normocephalic, Atraumatic Eyes: normal inspection, EOMI Neck: supple, Trachea midline Respiratory/Chest: Normal breath sounds, CTA, No accessory muscle use Cardiovascular: Irregularly irregular, No murmur Abdomen/GI:Soft, Non tender, Bowel sounds present Back: surgical site in dressing, +drain Extremities/Musculoskeletal:normal inspection, no edema Neurologic/Psych:AAOX3, grossly no focal neurological deficits Skin: normal color, warm Results & Data Results & Data Vital Signs (Past 12 Hours) Vital Signs Temp Pulse Pulse Resp BP Pulse Ox O2 Del Method 09/27/23 13:00 37.0 C 70 16 123/67 97 Room Air 09/27/23 09:15 Room Air 09/27/23 07:43 36.7 C 60 12 169/89 H 97 Room Air Laboratory Results Short CBC 09/27/23 Range/Units 06:36 WBC 12.21 H (4.8-10.8) K/ul Hgb 11.6 L (14.0-18.0) g/dl Hct 33.1 L (42.0-52.0) % Plt Count 233 (130-400) K/uL BMP 09/27/23 06:36 Sodium 138 Potassium 3.8 Chloride 105 Carbon Dioxide 24 BUN 31 H Creatinine 1.31 Glucose 141 H Calcium 8.5 L (3) HTN (hypertension) Hypertension type: primary hypertension Qualified Code(s): I10 - Essential (primary) hypertension (4) BPH (benign prostatic hyperplasia) Lower urinary tract symptom presence: symptoms present Lower urinary tract symptom detail: urinary retention Qualified Code(s): N40.1 - Benign prostatic hyperplasia with lower urinary tract symptoms; R33.8 - Other retention of urine (6) Acid reflux Esophagitis presence: without esophagitis Qualified Code(s): K21.9 - Gastro- esophageal reflux disease without esophagitis
[2023-09-27] MEDS: ACETAMINOPHEN 500 MG TAB PO PRN (20:05)
[2023-09-28 06:49] LABS: Calcium 8.8 mg/dl (8.6-10.3); Potassium 3.9 mmol/L (3.5-5.1)
[2023-09-28 06:54] LABS: BUN Creatinine Ratio 29.6 (10-20); Creatinine Clr Calc Pharmacy 69.7 ml/min; Est GFR (African American) 70.3 ml/min; Est GFR (Non-African American) 60.6 ml/min
[2023-09-28 07:04] LABS: Hematocrit (blood only) 33.4 % (42.0-52.0); Hemoglobin 11.8 g/dl (14.0-18.0); Mean Corpuscular Hemoglobin 32.6 pg (25.0-34.0); Mean Corpuscular Hgb Conc 35.3 g/dL (32.0-36.0); Mean Corpuscular Volume 92.3 fL (80.0-100.0); Mean Platelet Volume 11.1 fL (9.4-12.4); Platelet Count 245 K/uL (130-400); RDW Coefficient of Variation 12.6 % (11.5-14.5); RDW Standard Deviation 42.5 fL (36.4-46.3); Red Blood Count 3.62 M/uL (4.70-6.10); White Blood Count 11.97 K/ul (4.8-10.8)
--- NOTE | 2023-09-28 08:25 | Discharge Summary ---
Date of Service September 28, 2023 Admission HPI Per Admitting Provider This is a 78-year-old male presents chronic persistent back and leg pain after failing course of nonoperative care is here for surgical invention. Principal Diagnosis Lumbar spinal stenosis with spondylolisthesis and neurogenic claudication Discharge Data Allergies Allergy/AdvReac Type Severity Reaction Status Date / Time hydromorphone [From Dilaudid] Allergy Intermediate nausea and Verified 09/25/23 05:59 vomiting moexipril Allergy Intermediate Rash Verified 09/25/23 05:59 morphine Allergy Intermediate nausea and Verified 09/25/23 05:59 vomiting hydrochlorothiazide Allergy Unknown RASH Verified 09/25/23 05:59 iodine Allergy Unknown RASH Verified 09/25/23 05:59 Consultations 09/25/23 11:26 Consult Hospitalist Routine Procedures Performed Operation Date: 09/25/23 07:45 Actual Procedures p L4-L5 Decompression and Fusion Revision, Spinal Cord Monitoring(Not Applicable) - Jan Sue DO Ordered Studies 09/25/23 07:45 [place] lumbar spine 2-3V Routine Hospital Course (1) Neurogenic claudication due to lumbar spinal stenosis: Patient underwent lumbar decompression fusion tolerated this well was taken to orthopedic for postoperative. Postop he progressed appropriately. Leg pain improved. Excellent strength testing. Pain well-controlled. Subsidy discharged home. Discharge orders instructions from the chart for further review. Total Time Total Time Spent Total Time Spent (In Minutes): 20 minutes Discharge Plan Discharge Items Patient Disposition: Home - Self-Care Reason For Visit: Spondylolisthesis, Lumbar REgion, Spinal Stenosis Discharge Diagnosis: Lumbar spinal stenosis with neurogenic claudication Activity: As commented below Non-emergency contact: Primary Care Provider Call non-emergency contact if: you have any medication questions Follow-up/Referrals: Wagner Alejo M.D. [Primary Care Provider] - Diet: Regular Addtl Attending Provider Instructions: ACTIVITY RECOMMENDATIONS: SELF CARE INSTRUCTIONS AFTER THORACIC/LUMBAR FUSIONS 1. You may walk to your tolerance. It is good exercise for your legs and back. Expect some back and intermittent leg aches and pains. 2. You may perform "counter-top" level activities (make a sandwich, aniceto with a project, etc.). 3. No bending or lifting of more than 10 pounds or back twisting of any nature (roll like a log when turning in bed). 4. You may ride in a car for 20-30 minutes at a time. No driving until after your first visit with your doctor. 5. Frequent changes of position and restricting sitting to 30 minutes at a time will help limit the amount of back spasms and stiffness you may experience. 6. You may discontinue the use of ambulatory aids (cane, crutches, etc.) once your strength and confidence allow. 7. You may gluing machine operator the shower and let water strike your incision when you arrive home at least once daily. Do not take a tub bath, sit in a hot tub or go into a swimming pool until after your first recheck in the office. SPECIAL CARE INSTRUCTIONS: VERY IMPORTANT TO READ AND REVIEW A. Your surgical incision has been closed with a cosmetic suture under the skin that will dissolve in about 6 weeks. In 14 days, you can use a pair of clean scissors and cut the suture that is left outside of the skin at the ends of your incision. 1. The small skin tapes can be removed 7 days after surgery if they have not fallen off by that point. 2. You may keep the wound open to air as much as possible to promote healing after post-op day number 5 unless told otherwise by your doctor. 3. If you think the wound looks like it is becoming infected (redness or worsening drainage) and/or you are experiencing fever, chill or worsening back pain and muscle spasms, contact the office so that we may evaluate you as soon as possible. B. Complications are uncommon, but please contact us if you have any signs or symptoms of: 1. wound infection (fever higher than 102.5 degrees F, redness, separation of wound, drainage, or increasing pain from the incision) 2. blood clots in legs (pain, swelling, redness and warmth in legs) 3. urinary tract infection (fever higher than 102.5 degrees F, burning upon urination or increased frequency of urination) 4. nerve problems (inability to walk on your toes or heels, numbness, loss of bowel or bladder control) 5. any other symptoms that concern you C. Please call the office at if you have any concerns or questions about your operation or recovery. D. No smoking! Smoking drastically decreases the chance of a solid fusion. E. Do not take any anti-inflammatory medications (Indocin, Advil, Motrin, Aspirin, Naprosyn, etc.) as these may inhibit the chance of a solid fusion. Tylenol is okay to take for pain. MANAGING PAIN AFTER SPINAL SURGERY 1. Narcotic medication is intended for short-term use and will be provided for surgical pain. Surgical pain usually lasts for a period of 4-6 weeks. Narcotic medication includes Percocet, Vicodin, Darvocet, Tylenol #3 or Lortab. 2. Longer-term pain is more appropriately treated with non-narcotic medication such as Tylenol ES. 3. Muscle spasm is not appropriately treated with narcotics. Muscle relaxers such as Soma, Flexeril or Skelaxin can be used along with Tylenol ES. 4. Remember that we all live with some "aches and pains". This is not unusual or uncommon after an injury or as we get older. a. Back pain is expected and may include muscle spasms for 4 to 6 weeks after surgery. The pain should gradually improve. If the pain worsens for no apparent reason, please contact the office. b. Intermittent leg pain may also be experienced and should not be concerned about unless it worsens for no apparent reason. If so, please contact the office. 5. We will provide appropriate medication within the normal guidelines of their prescribed use. We will also be very cautious and aware of potential abuse and extended duration of patients' medication needs. a. Pain medications are for your comfort and to assist with sleep and rest so that the tissue can heal. They are not provided in order to return to normal activity and should not be used through the day. To do so or worsening pain at night can result from ongoing tissue damage and development of tolerance to the prescribed medicine. 6. Please allow 2-3 days to process refills. Prescriptions will not be mailed but must be picked up at the office. FOLLOW UP VISIT: Keep your scheduled follow-up appointment. Any questions, please call the office at . Pending Studies at Discharge: No Stand-Alone Forms: My [employer], Smoking Cessation Medications and MO Order Prescriptions: New tramadol 50 mg tablet 50 mg PO Q6H PRN (Reason: pain, moderate) Qty: 30 0RF oxycodone 5 mg tablet 5 mg PO Q6H PRN (Reason: pain) Qty: 30 0RF Continued Eliquis 5 mg tablet 5 mg PO BID Qty: 30 0RF atorvastatin 40 mg Tablet 40 mg PO HS chlorthalidone 25 mg Tablet 25 mg PO QAM cyanocobalamin (vitamin B-12) [Vitamin B-12] 250 mcg Tablet 250 mcg PO DAILY tamsulosin [Flomax] 0.4 mg Capsule 0.4 mg PO HS gemfibrozil 600 mg Tablet 600 mg PO BID pantoprazole [Protonix] 40 mg Tablet,Delayed Release (Dr/Ec) 40 mg PO QAM metoprolol tartrate 50 mg Tablet 50 mg PO BID losartan [Cozaar] 100 mg Tablet 100 mg PO QAM multivitamin Tablet 1 tab PO QAM Discharge Orders: Discharge Order (Routine); Ordered 09/28/23 Ordered By: Jan Turner/Other Patient Handouts: Managing Type 2 Diabetes Admission Data Admit Date/Time: 09/25/23 09:54 Attending Provider: Jan Sue Admit Provider: Jan Sue Primary Care Provider: Wagner Alejo Other Providers: Angelica Ayers
--- NOTE | 2023-09-28 12:44 | Hospitalist Progress Note ---
Date of Service September 28, 2023 Assessment & Plan (1) Neurogenic claudication due to lumbar spinal stenosis: Plan: Patient is a 78 yr male with H/O Atrial fibrillation, rate-controlled and on AC w/ Eliquis, HTN, hyperglycemia but no diagnosis of DM per PCP notes, GERD, BPH, peripheral neuropathy, and vitamin D deficiency who underwent L4-L5 decompression and fusion revision today (POD #0). Currently, his only significant complaint is lower back pain. Lumbar spinal stenosis with neurogenic claudication S/P lumbar decompression, fusion surgery by Dr. Sue on 07/25/2024 Expected postoperative acute blood loss anemia Pain control, activity, wound care as per primary team Bowel regimen to prevent constipation No indication for PRBC transfusion Monitor CBC Leukocytosis likely secondary to steroids Continue PT OT Plan to be discharged home today Advised to follow-up with PCP in 1 week Persistent atrial fibrillation Recommend to resume Eliquis once cleared by surgery Continue metoprolol (2) Prediabetes: Plan: DM II HbA1c 6.5 HbA1c 6.5 in August as well Patient currently prefers to be managed with dietary changes Continue insulin while hospitalized Monitor BGs Prefers to follow-up with PCP for further management CKD II Cr slightly elevated Received gentle IV fluids Monitor renal function Avoid nephrotoxic agents as able Cr levels improved (3) HTN (hypertension): Plan: Chronic, stable Continue losartan, metoprolol Resume chlorthalidone on discharge Monitor BP (4) BPH (benign prostatic hyperplasia): Plan: Chronic, stable - Continue tamsulosin (5) Dyslipidemia: Plan: Chronic, stable - Continue statin (6) Acid reflux: Plan: Chronic, stable - Continue PPI Plan DVT Px: SCDs Resume Eliquis once ok with orthopedic surgery Admission and Anticipated Discharge Date Admission Date: September 25, 2023 Subjective Patient is seen and examined at bedside States feeling much better today No new complaints Eager to get discharged Back pain is controlled Drain is removed Denies any chest pain, dyspnea, dizziness, nausea, vomiting Review of Systems Review of Systems: All systems reviewed & are unremarkable except as noted in Subjective Physical Exam Physical Exam: Physical Exam: Vitals signs as noted above General Appearance:Moderately built and nourished, no apparent distress Head: normocephalic, Atraumatic Eyes: normal inspection, EOMI Neck: supple, Trachea midline Respiratory/Chest: Normal breath sounds, CTA, No accessory muscle use Cardiovascular: Irregularly irregular, No murmur Abdomen/GI:Soft, Non tender, Bowel sounds present Back: surgical site in dressing Extremities/Musculoskeletal:normal inspection, no edema Neurologic/Psych:AAOX3, grossly no focal neurological deficits Skin: normal color, warm Results & Data Results & Data Vital Signs (Past 12 Hours) Vital Signs Temp Pulse Resp BP Pulse Ox O2 Del Method 09/28/23 07:27 36.5 C 78 16 159/91 H 97 Room Air Laboratory Results Short CBC 09/28/23 Range/Units 05:45 WBC 11.97 H (4.8-10.8) K/ul Hgb 11.8 L (14.0-18.0) g/dl Hct 33.4 L (42.0-52.0) % Plt Count 245 (130-400) K/uL BMP 09/28/23 05:45 Sodium 139 Potassium 3.9 Chloride 108 H Carbon Dioxide 20 L BUN 34 H Creatinine 1.15 Glucose 137 H Calcium 8.8 (3) HTN (hypertension) Hypertension type: primary hypertension Qualified Code(s): I10 - Essential (primary) hypertension (4) BPH (benign prostatic hyperplasia) Lower urinary tract symptom detail: urinary retention Lower urinary tract symptom presence: symptoms present Qualified Code(s): N40.1 - Benign prostatic hyperplasia with lower urinary tract symptoms; R33.8 - Other retention of urine (6) Acid reflux Esophagitis presence: without esophagitis Qualified Code(s): K21.9 - Gastro- esophageal reflux disease without esophagitis
== END 2023-09-28 12:20 | disposition home or self-care (01) | DRG 454 ==
LOC: ASU 05:36 → 3E 09:54